=== PATIENT | female | born 1975 | race Caucasian/White ===

== ENCOUNTER 2017-06-19 10:20 | Emergency (ER) | payer MEDICAID ==
[2017-06-19] MEDS: predniSONE 20 MG TAB PO (10:37)
[2017-06-19] MEDS: ALBUTEROL 0.083% (NEB) 2.5 MG/3 ML AMP HHN (10:46)
[2017-06-19] MEDS: IPRATROPIUM (NEB) 0.5 MG/2.5 ML AMP HHN (10:46)
== END 2017-06-19 11:15 | disposition home or self-care (01) ==
LOC: FTE 10:20
DX: J45.901 Unspecified asthma with (acute) exacerbation (principal); J20.9 Acute bronchitis, unspecified
CPT/HCPCS: 71045; 94664; 99284-25